=== PATIENT | male | born 1995 | race Caucasian/White ===

== ENCOUNTER 2021-09-15 13:16 | Emergency (ER) | payer OTHER ==
[~2021-09-15] VITALS: Ht 167.6 cm; Wt 92.5 kg
[2021-09-15 13:33] VITALS: BP 143/117
[2021-09-15] MEDS ORDERED: METOCLOPRAMIDE 10 MG/2 ML INJ VIAL IVP ONE (14:05)
[2021-09-15] MEDS ORDERED: NACL 0.9% 1,000 ML IV ONE (14:05)
[2021-09-15] MEDS ORDERED: diphenhydrAMINE 50 MG/ML VIAL IVP ONE (14:05)
[2021-09-15] MEDS ORDERED: DEXAMETHASONE 10 MG/ML VIAL IVP ONE (14:05)
[2021-09-15] MEDS ORDERED: MECLIZINE 25 MG TAB PO ONE (14:05)
[2021-09-15 14:19] LABS: BASOPHILS % (AUTO) 0.7 % (0.0-2.0); EOSINOPHILS # (AUTO) 0.1 K/uL (0-0.4); EOSINOPHILS % (AUTO) 1.8 % (0.0-4.0); HEMATOCRIT 46.6 % (36-52); HEMOGLOBIN 16.1 g/dL (12.0-18.0); LYMPHOCYTES # (AUTO) 1.8 K/uL (2.0-11.5); LYMPHOCYTES % (AUTO) 24.8 % (20.5-51.1); MEAN CORPUSCULAR HEMOGLOBIN 31 pg (27-31); MEAN CORPUSCULAR HGB CONC 35 g/dL (33-37); MEAN CORPUSCULAR VOLUME 89.6 fL (80-94); MONOCYTES # (AUTO) 0.6 K/uL (0.8-1.0); MONOCYTES % (AUTO) 7.8 % (1.7-9.3); NEUTROPHILS # (AUTO) 4.7 K/uL (1.8-7.7); NEUTROPHILS % (AUTO) 64.9 % (42.2-75.2); PLATELET COUNT (AUTO) 285 K/uL (140-450); RED CELL DISTRIBUTION WIDTH 14.2 % (11.6-13.7); WHITE BLOOD COUNT (AUTO) 7.3 K/uL (4.8-10.8)
[2021-09-15 14:51] LABS: ANION GAP 12.2 (8-16); CARBON DIOXIDE 23.3 mmol/L (21-32); CREATININE 1.1 mg/dL (0.6-1.3); POTASSIUM 3.5 mmol/L (3.5-5.1); TOTAL BILIRUBIN 0.4 mg/dL (0.0-1.0)
--- NOTE | 2021-09-15 15:11 | NUR ---
26/M PRESENTS TO ED WITH C/O HEADACHE, DIZZINESS AND DIFFICULTY HEARING X2 DAYS. PATIENT REPORTS BILATERAL EARACHE TODAY, REPORTS TAKING ASPIRIN AND EXCEDRIN WITH MILD RELIEF. PATIENT DENIES VISION CHANGES, NUMBNESS OR TINGLING, DENIES N/V/D.
[2021-09-15] MEDS ORDERED: PRED20TA5 PO (16:00)
[2021-09-15] MEDS ORDERED: ALBU0.0912 IH (16:00)
[2021-09-15] MEDS ORDERED: SUD30 PO (16:00)
[2021-09-15] MEDS ORDERED: MECL-303 PO (16:00)
--- NOTE | 2021-09-15 16:00 | NUR ---
all results back and noted by ERMD and for discharge
[2021-09-15 16:10] VITALS: BP 119/73
--- NOTE | 2021-09-15 16:10 | NUR ---
Patient discharged with v/s stable. Written and verbal after care instructions given and explained. Patient alert, oriented and verbalized understanding of instructions. Ambulatory with steady gait. All questions addressed prior to discharge. ID band removed. Patient advised to follow up with PMD. Rx of meclizine, prednisone, sudafed, proventil hfa mdi given. Patient educated on indication of medication including possible reaction and side effects. Opportunity to ask questions provided and answered.
== END 2021-09-15 16:10 | disposition home or self-care (01) ==
LOC: MED 13:16
DX: H81.03 Meniere's disease, bilateral (principal); G43.909 Migraine, unspecified, not intractable, without status migrainosus; I10 Essential (primary) hypertension; Z90.49 Acquired absence of other specified parts of digestive tract; Z79.899 Other long term (current) drug therapy
CPT/HCPCS: 36415; 70450; 80053; 85025; 96361; 96374; 96375; 99284; J1100; J1200; J2765; J7030; J8597